=== PATIENT | male | born 1970 | race African-American/Black ===

== ENCOUNTER 2023-08-12 23:49 | Emergency (ER) | payer OTHER ==
[~2023-08-12] VITALS: Ht 175.3 cm; Wt 70.0 kg
[2023-08-12 23:54] VITALS: BP 130/70; PULSE 95; RESP 16; O2SAT 98
[2023-08-13] MEDS ORDERED: ACETAMINOPHEN 325MG TABLET PO ONE (01:15)
[2023-08-13 01:42] VITALS: TEMP 98
== END 2023-08-13 03:13 | disposition home or self-care (01) ==
LOC: ER 23:49
DX: S53.492A Other sprain of left elbow, initial encounter (principal); S83.8X2A Sprain of other specified parts of left knee, initial encounter; S43.492A Other sprain of left shoulder joint, initial encounter; S33.5XXA Sprain of ligaments of lumbar spine, initial encounter; X58.XXXA Exposure to other specified factors, initial encounter; Y93.89 Activity, other specified; Y92.89 Other specified places as the place of occurrence of the external cause; Y99.8 Other external cause status
CPT/HCPCS: 72100; 73030; 73080; 73610; 99284